=== PATIENT | male | born 1990 | race Caucasian/White ===

== ENCOUNTER 2021-05-29 19:49 | Emergency (ER) | payer MEDICAID ==
[~2021-05-29] VITALS: Ht 170.2 cm; Wt 98.9 kg
[2021-05-29] MEDS ORDERED: insulin SUBCUT (20:06)
[2021-05-29] MEDS ORDERED: METF-441 PO (20:06)
[2021-05-29] MEDS ORDERED: cholesterol pill PO (20:06)
--- NOTE | 2021-05-29 20:12 | NUR ---
Seen and examined by Dr. Garcia.
[2021-05-29] MEDS ORDERED: KETOROLAC TROMETHAMINE 60 MG INJ IM ONE ×2 (20:24→20:30)
[2021-05-29 20:44] LABS: *BILIRUBIN,URIN NEGATIVE (NEGATIVE); *BLOOD, URINE NEGATIVE (NEGATIVE); *CLARITY,URINE CLEAR (CLEAR); *COLOR,URINE YELLOW (YELLOW); *KETONES,URINE 1+ (NEGATIVE); *UROBILINOGEN,URINE 0.2 E.U./dl (NORMAL); LEUKOCYTE ESTERASE ,URINE NEGATIVE (NEGATIVE); NITRITE, URINE NEGATIVE (NEGATIVE); UGLUCOSE 2+ (NEGATIVE)
--- NOTE | 2021-05-29 21:00 | NUR ---
Bedside Ultrasound done.
[2021-05-29] MEDS ORDERED: AZITHROMYCIN 250 MG TABLET PO ONE (21:30)
[2021-05-29] MEDS ORDERED: CEFTRIAXONE 500 MG VIAL IM ONE (21:30)
[2021-05-29] MEDS ORDERED: AZITHROMYCIN 250 MG TABLET ONE (21:36)
[2021-05-29] MEDS ORDERED: CEFTRIAXONE 500 MG VIAL ONE (21:36)
[2021-05-29] MEDS ORDERED: LIDOCAINE HCL 1% 20 ML VIAL ONE (21:37)
--- NOTE | 2021-05-29 22:40 | NUR ---
Dr. Garcia discussed plan of care with patient, including DC. BMP drawn by [facility].
[2021-05-29] MEDS ORDERED: IBUP800T54 PO (22:49)
[2021-05-29] MEDS ORDERED: LEVO500T90 PO (22:49)
--- NOTE | 2021-05-29 23:00 | NUR ---
Patient discharged to home in stable condition. Written and verbal after care instructions given. Patient verbalizes understanding of instructions. Stressed follow up or return to ER for worsening s/s.
[2021-05-29 23:05] VITALS: BP 142/90
[2021-05-30 00:23] LABS: CREATININE 0.8 mg/dL (0.6-1.3); POTASSIUM 4.1 mmol/L (3.5-5.1)
== END 2021-05-29 23:00 | disposition home or self-care (01) ==
LOC: ER 20:31
DX: N45.1 Epididymitis (principal); E11.9 Type 2 diabetes mellitus without complications; E78.5 Hyperlipidemia, unspecified; Z79.4 Long term (current) use of insulin; Z79.84 Long term (current) use of oral hypoglycemic drugs; R03.0 Elevated blood-pressure reading, without diagnosis of hypertension
CPT/HCPCS: 36415; 76870; 80048; 81003; 82962; 96372 ×2; 99284; J0696; J1885; J3490; A4663; Q0144